=== PATIENT | male | born 1975 | race Native Hawaiian/Other Pacific Islander ===

== ENCOUNTER 2021-05-14 17:01 | Observation (INO) | payer OTHER ==
[~2021-05-14] VITALS: Ht 185.4 cm; Wt 161.0 kg
[2021-05-14 18:54] LABS: Influenza A, PCR NEGATIVE (NEGATIVE); Influenza B, PCR NEGATIVE (NEGATIVE); Resp Syncytial Virus, PCR NEGATIVE (NEGATIVE); SARS-Cov-2 (COVID-19) PCR, MMC NEGATIVE (NEGATIVE)
[2021-05-14] MEDS ORDERED: SITA100T2 PO (19:52)
[2021-05-14] MEDS ORDERED: AMLODIPINE BESYL5 MG PO (19:53)
[2021-05-14] MEDS ORDERED: HYDCHL25 (19:53)
[2021-05-14] MEDS ORDERED: METF500 PO (19:53)
--- NOTE | 2021-05-15 08:59 | NUR ---
PT BEEN TO DAYSURGERY BY JOHNY, FROM ROOM 224. History, Chart, Medications and Allergies reviewed before start of procedure.Lungs clear T/O to Auscultation. Patient confirms NPO status and agrees with scheduled surgery. Pre-Op teaching done. Pt verbalizes understanding.
--- NOTE | 2021-05-15 19:36 | NUR ---
SHIFT SUMMARY PATIENT ALERT AND ORIENTED. RIGHT LOWER ABD PAIN. WENT FOR CHOLECYSTECOMY WITH DR VÁZQUEZ. ABD LAP SITES X4 C/D/I. NICO DRAIN TO RIGHT LOWER ABD WITH MINIMAL DRAINAGE. TOLERATING ADA DIET AND FLUIDS. VOIDING WELL. ROUTINE POST OP ABX. PLAN TO DISCHARGE HOME 05/16/21. REPORT GIVEN TO SOFTWARE ENGINEER ADVISOR RN.
--- NOTE | 2021-05-16 04:53 | NUR ---
SHIFT SUMMARY: MARCIAL IS A&OX4. VSS, NO ACUTE EVENTS OVERNIGHT. HE IS TOLERATING PO INTAKE WELL, INDEPENDENT IN THE ROOM, URINATING WITHOUT DIFFICULTY, AND REPORTS ADEQUATE PAIN CONTROL WITH TWO TABLETS OF NORCO. HE IS LYING IN BED WITH THE CALL LIGHT IN REACH, DENIES ANY NEEDS AT THIS TIME. WILL MONITOR UNTIL GIVING REPORT TO DAY SHIFT RN.
[2021-05-16] MEDS ORDERED: Norco 5-325 Ta1 EACH PO (10:37)
--- NOTE | 2021-05-16 10:52 | NUR ---
DISCHARGE: PT DC TO HOME AT THIS TIME WITH SPOUSE. VERBAL UNDERSTANDING OF INSTRUCTIONS, FOLLOW UP, PROBLEMS TO REPORT AND MEDICATIONS. SCRIPT GIVEN. IV DC'D WNL. PT AMBULATED TO CAR WITH BELONGINGS.
== END 2021-05-16 10:50 | disposition home or self-care (01) ==
LOC: ER 17:01 → SURS 17:02 → ER 18:10 → SURS 18:10
PROVIDERS: Physician Assistant; ADMIT Surgery
PROC: 0FT44ZZ Resection of Gallbladder, Percutaneous Endoscopic Approach (ICD-10-PCS; principal; 2021-05-15 09:00)
DX: K80.00 Calculus of gallbladder with acute cholecystitis without obstruction (principal); E66.01 Morbid (severe) obesity due to excess calories; E11.9 Type 2 diabetes mellitus without complications; I10 Essential (primary) hypertension; K42.9 Umbilical hernia without obstruction or gangrene; Z68.42 Body mass index [BMI] 45.0-49.9, adult; Z88.2 Allergy status to sulfonamides; Z79.84 Long term (current) use of oral hypoglycemic drugs; Z20.822 Contact with and (suspected) exposure to COVID-19
CPT/HCPCS: 0241U; 36415; 82947; 93005; 93010; 96365; 96366; 96372; 99284-25; A9270; G0378; J0295; J1100; J1650; J1885; J2270; J2405; J2704; J2710; J3010; J7030; J7050; J7120

== ENCOUNTER → 2021-05-14 | Outpatient (CLI) | payer OTHER ==
[~2021-05-14] MED LIST: AMLODIPINE BESYL5 MG PO; HYDCHL25; METF500 PO; Norco 5-325 Ta1 EACH PO; SITA100T2 PO
[2021-05-14 16:49] LABS: Appearance, Urine Clear (Clear); Bilirubin, Urine Neg (Neg); Blood, Urine 2+ (Neg); Color, Urine Yellow (P-Yellow); Glucose Qualitative, Urine 2+ (Neg); Ketones, Urine Neg (Neg); Leukocyte Esterase, Urine Neg (Neg); Nitrite, Urine Neg (Neg); Protein, Urine 3+ (Neg); Specific Gravity, Urine 1.025 (1.003-1.022); Urobilinogen, Urine NORM (Normal)
[2021-05-14 17:17] LABS: Bacteria Few /hpf; Squamous Epithelial Cells Rare /hpf (Few)
== END | disposition home or self-care (01) ==
LOC: LAB SHORT 10:45 → LAB 10:45
PROVIDERS: Family Medicine
DX: R10.2 Pelvic and perineal pain (principal)
CPT/HCPCS: 81001; 87086

== ENCOUNTER → 2021-07-31 | Outpatient (CLI) | payer OTHER | END | disposition home or self-care (01) | LOC: LAB SHORT 11:34 → LAB 11:34 | DX: R30.0 Dysuria (principal) | CPT/HCPCS: 87077; 87086; 87186 ==

== ENCOUNTER → 2023-04-01 | Outpatient (CLI) | payer OTHER ==
[2023-04-01 16:26] LABS: Source, Urine Clean Catch
[2023-04-01 17:08] LABS: Bacteria Rare /hpf; Red Blood Cells, Urine Not Seen /hpf (0-2); Squamous Epithelial Cells Not Seen /hpf (Few); White Blood Cells, Urine 0-2 /hpf (0-5)
== END | disposition home or self-care (01) ==
LOC: LAB SHORT 16:24 → LAB 16:24
PROVIDERS: Nurse Practitioner Family
DX: N39.0 Urinary tract infection, site not specified (principal)
CPT/HCPCS: 81015; 87077; 87086; 87186

== ENCOUNTER → 2023-10-25 | Outpatient (CLI) | payer OTHER ==
[2023-10-25 09:20] LABS: Source, Urine Clean Catch
[2023-10-25 09:25] LABS: BASOPHILS ABSOLUTE AUTO 0.03 K/mm3 (0.00-0.23); BASOPHILS PERCENT AUTO 1 % (0-2); EOSINOPHILS ABSOLUTE AUTO 0.14 K/mm3 (0.00-0.68); EOSINOPHILS PERCENT AUTO 3 % (0-6); Hematocrit 37.9 % (37.0-53.0); Hemoglobin 12.6 g/dL (13.5-17.5); IMMATURE GRAN ABSOLUTE AUTO 0.02 K/mm3 (0.00-0.10); IMMATURE GRAN PERCENT AUTO 0 % (0-1); LYMPHOCYTES ABSOLUTE AUTO 0.56 K/mm3 (0.84-5.20); LYMPHOCYTES PERCENT AUTO 11 % (21-46); MONOCYTES ABSOLUTE AUTO 0.55 K/mm3 (0.16-1.47); MONOCYTES PERCENT AUTO 11 % (4-13); Mean Corpuscular HGB 30.1 pg (26.0-34.0); Mean Corpuscular HGB Conc 33.2 g/dL (31.5-36.5); Mean Corpuscular Volume 91 fL (80-100); NEUTROPHILS ABSOLUTE AUTO 3.68 K/mm3 (1.96-9.15); NEUTROPHILS PERCENT AUTO 74 % (41-73); Platelet Count 253 K/mm3 (150-400); RDW Coefficient Variation 14.4 % (11.7-14.2); RDW Standard Deviation 47.5 fL (35.1-46.3); Red Blood Cell Count 4.19 M/mm3 (4.30-5.90); White Blood Cell Count 4.98 K/mm3 (4.00-11.30)
[2023-10-25 09:27] LABS: Appearance, Urine Hazy (Clear); Blood, Urine 2+ (Neg); Color, Urine Amber (P-Yellow); Glucose Qualitative, Urine Neg (Neg); Ketones, Urine 1+ (Neg); Leukocyte Esterase, Urine 1+ (Neg); Nitrite, Urine Pos (Neg); Protein, Urine 3+ (Neg); Specific Gravity, Urine 1.025 (1.003-1.022); Urobilinogen, Urine 2+ (Normal)
[2023-10-25 09:46] LABS: Bilirubin, Urine 3+ (Neg)
[2023-10-25 09:48] LABS: Calcium Oxalate Crystals Few /hpf; Red Blood Cells, Urine 0-2 /hpf (0-2)
[2023-10-25 09:49] LABS: Bacteria Few /hpf; Squamous Epithelial Cells Few /hpf (Few)
[2023-10-25 09:50] LABS: Mucus Heavy (0-Heavy)
[2023-10-25 09:58] LABS: Albumin, Blood 3.5 g/dL (3.4-5.0); Albumin/Globulin Ratio 0.5 (0.8-1.8); Bilirubin, Total 7.4 mg/dL (0.1-1.0); Bun/Creatinine Ratio 12.2 (12.0-20.0); Creatinine, Blood 0.74 mg/dL (0.60-1.20); Globulin, Blood 6.7 g/dL (2.2-4.0); Total Protein, Blood 10.2 g/dL (6.4-8.2); Uric Acid, Blood 6.5 mg/dL (3.5-7.2)
[2023-10-25 12:12] LABS: Bilirubin, Direct 5.7 mg/dL (0.0-0.3)
== END | disposition home or self-care (01) ==
LOC: LAB SHORT 08:46 → LAB 08:46
PROVIDERS: Internal Medicine Hematology & Oncology
DX: C4A.9 Merkel cell carcinoma, unspecified (principal)
CPT/HCPCS: 80053; 81001; 82248; 84550; 85025; 86880

== ENCOUNTER → 2024-05-29 | Outpatient (CLI) | payer OTHER | END | disposition home or self-care (01) | LOC: LAB SHORT 07:11 → LAB 07:11 | DX: R59.0 Localized enlarged lymph nodes (principal) | CPT/HCPCS: 88173 ==

== ENCOUNTER 2024-06-14 11:27 | Day surgery (SDC) | payer OTHER ==
[~2024-06-14] VITALS: Ht 182.9 cm; Wt 162.1 kg
[2024-06-14] MEDS ORDERED: Lactated Ringer's 1,000 ML IV ONE ×2 (11:50→13:08)
[2024-06-14] MEDS ORDERED: OZEMPIC1 MG/0.72 SC (11:52)
[2024-06-14] MEDS ORDERED: PRAVASTATIN SOD10 MG PO (11:53)
[2024-06-14] MEDS ORDERED: LOSA50 PO (11:53)
[2024-06-14] MEDS ORDERED: ERGO50000 PO (11:54)
--- NOTE | 2024-06-14 12:20 | NUR ---
06/14/24 1220 LISBETH STRATTON DISCHARGE INSTRUCTIONS PROVIDED TO PATIENT AND ALL QUESTIONS ANSWERED. GURNEY IN LOW POSITION, RAILS UP AND CALL LIGHT IN REACH.
[2024-06-14] MEDS ORDERED: EPINEPhrine HCl 1 MG/ML 1ML Amp ONE (12:34)
[2024-06-14] MEDS ORDERED: Ondansetron HCl 2 MG / ML 2ML Vial ONE (12:54)
[2024-06-14] MEDS ORDERED: Metoclopramide HCl 5MG / ML 2ML Vial ONE (12:54)
[2024-06-14] MEDS ORDERED: propofoL 20 ML IV ONE (12:54)
[2024-06-14] MEDS ORDERED: FentaNYL Citrate 50 MCG/ML 2 ML Injection ONE (12:54)
[2024-06-14] MEDS ORDERED: Rocuronium Bromide 10 MG/ML 5ML Injection IV ONE ×2 (12:54→13:16)
[2024-06-14] MEDS ORDERED: Lidocaine 1%-Epineph 1:200000 30 ML SDV ONE (13:04)
[2024-06-14 14:57] VITALS: BP 144/99
--- NOTE | 2024-06-14 15:01 | NUR ---
06/14/24 [email or web address] Bing Almodovar PT STATED THAT HE TAKES BLOOD PRESSURE MEDICATION. PT'S BP WAS ELEVATED IN PACU AND STEP DOWN. PT TAKES 2 DIFFERENT BP MEDICATIONS. PT DENIED ANY CHEST PAIN, NO SOB, AND NO JOHNSON'S. PT EDUCATION PROVIDED TO PT AND HIS . ALL QUESTIONS WERE ANSWERED, CONCERNS ADDRESSED. PT WANTED TO WALK TO CAR. PT'S GAIT WAS STEADY. THIS RN WAS OBSERVING PT WALK WITH . PT SAFELY GOT TO CAR.
== END 2024-06-14 14:50 | disposition home or self-care (01) ==
LOC: ORSCSDS 11:27
PROVIDERS: Otolaryngology
PROC: 07B20ZX Excision of Left Neck Lymphatic, Open Approach, Diagnostic (ICD-10-PCS; principal; 2024-06-14 13:00)
DX: C4A.9 Merkel cell carcinoma, unspecified (principal); C79.89 Secondary malignant neoplasm of other specified sites; C77.0 Secondary and unspecified malignant neoplasm of lymph nodes of head, face and neck; I10 Essential (primary) hypertension; E11.9 Type 2 diabetes mellitus without complications; G47.33 Obstructive sleep apnea (adult) (pediatric); E66.01 Morbid (severe) obesity due to excess calories; Z68.42 Body mass index [BMI] 45.0-49.9, adult; E78.00 Pure hypercholesterolemia, unspecified; Z79.899 Other long term (current) drug therapy; Z79.85 Long-term (current) use of injectable non-insulin antidiabetic drugs; Z79.84 Long term (current) use of oral hypoglycemic drugs
CPT/HCPCS: 82947; 87102; 87116; 88184; 88185; 88305; 88341; 88342; J0171; J2405; J2704; J2765; J3010; J7120

== ENCOUNTER 2024-10-15 21:11 | Emergency (ER) | payer OTHER ==
[~2024-10-15] VITALS: Ht 182.9 cm; Wt 149.7 kg
[~2024-10-15 21:11] MED LIST changes: +ERGO50000 PO; +LOSA50 PO; +OZEMPIC1 MG/0.72 SC; +PRAVASTATIN SOD10 MG PO
[2024-10-15 21:40] LABS: BASOPHILS ABSOLUTE AUTO 0.05 K/mm3 (0.00-0.23); BASOPHILS PERCENT AUTO 0 % (0-2); EOSINOPHILS ABSOLUTE AUTO 0.07 K/mm3 (0.00-0.68); EOSINOPHILS PERCENT AUTO 1 % (0-6); Hematocrit 36.8 % (37.0-53.0); Hemoglobin 12.4 g/dL (13.5-17.5); IMMATURE GRAN ABSOLUTE AUTO 0.14 K/mm3 (0.00-0.10); IMMATURE GRAN PERCENT AUTO 1 % (0-1); LYMPHOCYTES ABSOLUTE AUTO 1.46 K/mm3 (0.84-5.20); LYMPHOCYTES PERCENT AUTO 10 % (21-46); MONOCYTES ABSOLUTE AUTO 1.29 K/mm3 (0.16-1.47); MONOCYTES PERCENT AUTO 9 % (4-13); Mean Corpuscular HGB Conc 33.7 g/dL (31.5-36.5); Mean Corpuscular Volume 91 fL (80-100); NEUTROPHILS ABSOLUTE AUTO 11.63 K/mm3 (1.96-9.15); NEUTROPHILS PERCENT AUTO 79 % (41-73); NRBC ABSOLUTE 0.00 K/mm3 (0.00-0.02); NRBC Auto 0.0 /100 WBC (0.0-0.2); Platelet Count 215 K/mm3 (150-400); RDW Coefficient Variation 14.5 % (11.7-14.2); RDW Standard Deviation 48.4 fL (35.1-46.3)
[2024-10-15 22:02] LABS: Alanine Aminotransfer (ALT/SGP 38.0 U/L (12-78); Albumin, Blood 3.1 g/dL (3.4-5.0); Albumin/Globulin Ratio 0.7 (0.8-1.8); Anion Gap 9.0 mmol/L (3-11); Aspartate Aminotrans (AST/SGOT 22.0 U/L (12-37); Bilirubin, Total 0.6 mg/dL (0.1-1.0); Blood Urea Nitrogen 14.0 mg/dL (8-24); CO2, Blood 25.0 mmol/L (21-32); Calcium, Blood 8.7 mg/dL (8.5-10.1); Chloride, Blood 105.0 mmol/L (98-108); Creatinine, Blood 0.81 mg/dL (0.60-1.20); Globulin, Blood 4.6 g/dL (2.2-4.0); Glucose, Blood 134.0 mg/dL (70-99); Potassium, Blood 3.9 mmol/L (3.5-5.5); Sodium, Blood 135.0 mmol/L (136-145); Total Protein, Blood 7.7 g/dL (6.4-8.2)
[2024-10-15 22:30] LABS: Source, Urine Clean Catch
[2024-10-15 22:33] LABS: Bilirubin, Urine Neg (Neg); Glucose Qualitative, Urine Neg (Neg); Ketones, Urine Neg (Neg); Leukocyte Esterase, Urine 3+ (Neg); Protein, Urine 2+ (Neg); Specific Gravity, Urine 1.015 (1.003-1.022); Urobilinogen, Urine NORM (Normal)
[2024-10-15 22:36] LABS: Color, Urine Yellow (P-Yellow)
[2024-10-15 22:39] LABS: Red Blood Cells, Urine 0-2 /hpf (0-2); White Blood Cells, Urine TNTC /hpf (0-5)
[2024-10-16 00:20] VITALS: BP 146/84
[2024-10-16] MEDS ORDERED: Piperacillin/Tazobactam Sod 3.375 GM in NS 100 ML IV ONE (01:40)
[2024-10-16] MEDS ORDERED: CIPR500 PO (01:44)
== END 2024-10-16 02:41 | disposition home or self-care (01) ==
LOC: ER 21:11
PROVIDERS: Student in an Organized Health Care Education/Training Program
DX: N45.3 Epididymo-orchitis (principal); E11.9 Type 2 diabetes mellitus without complications; I10 Essential (primary) hypertension; Z88.2 Allergy status to sulfonamides; Z79.84 Long term (current) use of oral hypoglycemic drugs; Z79.85 Long-term (current) use of injectable non-insulin antidiabetic drugs; Z79.899 Other long term (current) drug therapy
CPT/HCPCS: 76870; 80053; 81001; 85025; J2543

== ENCOUNTER 2024-12-05 01:01 | Day surgery (SDC) | payer OTHER ==
[~2024-12-05 01:01] MED LIST changes: +CIPR500 PO
[2024-12-05] MEDS ORDERED: [UNRECOGNIZED DRUG - OTHER] IM SCH (06:00)
[2024-12-05] MEDS ORDERED: LEVOTHYROXINE125 MC9 PO (11:14)
[2024-12-05] MEDS ORDERED: CALCITRIOL0.5 MC1 PO (11:14)
[2024-12-05] MEDS ORDERED: INSULANI SC (11:15)
[2024-12-05] MEDS ORDERED: GLIP5 PO (11:15)
[2024-12-05] MEDS ORDERED: GLIP10 PO (11:16)
== END 2024-12-05 09:34 | disposition home or self-care (01) ==
LOC: ATC 01:01
DX: C73 Malignant neoplasm of thyroid gland (principal); C79.9 Secondary malignant neoplasm of unspecified site; E11.9 Type 2 diabetes mellitus without complications; E89.0 Postprocedural hypothyroidism; E89.2 Postprocedural hypoparathyroidism; Z79.84 Long term (current) use of oral hypoglycemic drugs; Z88.2 Allergy status to sulfonamides; Z79.4 Long term (current) use of insulin; Z79.890 Hormone replacement therapy
CPT/HCPCS: 96372; J3240

== ENCOUNTER 2024-12-06 00:38 | Day surgery (SDC) | payer OTHER ==
[~2024-12-06 00:38] MED LIST changes: +CALCITRIOL0.5 MC1 PO; +GLIP10 PO; +GLIP5 PO; +INSULANI SC; +LEVOTHYROXINE125 MC9 PO
[2024-12-06 11:17] VITALS: BP 153/98
== END 2024-12-06 11:22 | disposition home or self-care (01) ==
LOC: ATC 00:38
DX: C73 Malignant neoplasm of thyroid gland (principal); E11.9 Type 2 diabetes mellitus without complications; Z88.2 Allergy status to sulfonamides; Z79.899 Other long term (current) drug therapy
CPT/HCPCS: 96372; J3240